=== PATIENT | male | born 1945 | race Caucasian/White ===

== ENCOUNTER 2017-04-03 19:37 | Inpatient (IN) | payer MEDICARE, OTHER ==
--- NOTE | ~2017-04-03 | US84 ---
[id number] [facility]. [facility] [address]. [place], [place] [address] [id number] E MR#: [id number] Acc #: [id number] NAME: DELFINO DILLON : 1945 SEX: M STUDY DATE/TIME: 04/03/2017 18:41 UNIT: MESHA ROOM: STUDY DESCRIPTION: US LE Veins Complete Johnnie Stdy Attending Physician: Halina Coleman M.D. Ordering Physician: Halina Coleman M.D. MEDICAL IMAGING REPORT This report is preliminary unless electronic signature is present EXAM Bilateral lower extremity venous duplex 04/03/2017 HISTORY Chronic bilateral lower extremity pain and swelling for 1 year, cellulitis. Evaluate for deep vein thrombosis. TECHNIQUE Venous ultrasound examination of both lower extremities was performed using grayscale, spectral Doppler and color flow Doppler imaging. FINDINGS The examination is negative. There is no evidence of deep venous thrombus from the groin to the lower calf bilaterally. Visualized greater saphenous veins are also patent. IMPRESSION Negative examination. No evidence of lower extremity deep venous thrombosis. Dictated by... Shiv Reyna M.D. THIS IS AN ELECTRONICALLY VERIFIED REPORT Shiv Reyna M.D. at 04/04/2017 2:20 PM KRT/alicia TD: 04/03/2017 20:45 JOB #: [id number] MEDICAL IMAGING REPORT Page 1 of 1 COPY
--- NOTE | ~2017-04-03 | CR252 ---
[facility] A Service of [facility] & [facility] RADIOLOGY TEXT RESULTS PATIENT: DELFINO DILLON LOCATION: [facility] : [birth year] UNIT #: [id number] AGE: [address]: Halina Coleman MD SEX: M ORDER DR: [id number] [facility] [address] [place], [place] [address] [id number] E MR#: [id number] Acc #: [id number] NAME: DELFINO DILLON : 1945 SEX: M STUDY DATE/TIME: 04/03/2017 19:37 UNIT: [facility] ROOM: STUDY DESCRIPTION: CR Tibia and Fibula 2 Views Lt Attending Physician: Halina Coleman M.D. Ordering Physician: Halina Coleman M.D. MEDICAL IMAGING REPORT This report is preliminary unless electronic signature is present EXAM Left tib-fib 04/03 INDICATIONS Redness and edema in the lower legs today. Cellulitis. FINDINGS AP and lateral views of the left lower leg were obtained. The patient is a knee arthroplasty hardware which appears well-aligned. The arterial calcifications are noted in the soft tissues. Chronic spurring is noted about the ankle. No fractures are seen. No soft tissue gas. IMPRESSION Knee replacement. No fractures are seen and there is no soft tissue gas. Chronic spurring noted about the ankle. Dictated by... Luis Alvarez Jr., M.D. THIS IS AN ELECTRONICALLY VERIFIED REPORT Luis Alvarez Jr., M.D. at 04/03/2017 11:05 PM URSZULA/alicia TD: 04/03/2017 20:47 JOB #: [id number] MEDICAL IMAGING REPORT Page 1 of 1 COPY
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
--- NOTE | ~2017-04-03 | CR253 ---
[facility] A Service of [facility] & [facility] RADIOLOGY TEXT RESULTS PATIENT: DELFINO DILLON LOCATION: [facility] : 43 UNIT #: [id number] AGE: [address]: Halina Coleman MD SEX: M ORDER DR: [id number] [facility] [address]. [place], [place] [address] [id number] E MR#: [id number] Acc #: [id number] NAME: DELFINO DILLON : 1945 SEX: M STUDY DATE/TIME: 04/03/2017 19:43 UNIT: [facility] ROOM: STUDY DESCRIPTION: CR Tibia and Fibula 2 Views Rt Attending Physician: Halina Coleman M.D. Ordering Physician: Halina Coleman M.D. MEDICAL IMAGING REPORT This report is preliminary unless electronic signature is present EXAM Right tib-fib 04/03 INDICATIONS Leg redness and edema for 1 day. Cellulitis. FINDINGS AP and lateral views of the tibia-fibula were obtained. Right knee arthroplasty appears well positioned. Atherosclerotic calcifications are noted in the soft tissues. There is no soft tissue gas. Chronic degenerative spurring or old post-traumatic change noted around the ankle. IMPRESSION Knee arthroplasty. Chronic changes about the ankle. No fracture or soft tissue gas. Dictated by... Luis Alvarez Jr., M.D. THIS IS AN ELECTRONICALLY VERIFIED REPORT Luis Alvarez Jr., M.D. at 04/03/2017 11:05 PM RLK/alicia TD: 04/03/2017 20:55 JOB #: [id number] MEDICAL IMAGING REPORT Page 1 of 1 COPY
--- NOTE | ~2017-04-03 | CR72 ---
[facility] A Service of [facility] & [facility] RADIOLOGY TEXT RESULTS PATIENT: DELFINO DILLON LOCATION: [facility] : 44 UNIT #: [id number] AGE: [address]: Halina Coleman MD SEX: M ORDER DR: [id number] [facility] [address] [place], [place] [address] [id number] E MR#: [id number] Acc #: [id number] NAME: DELFINO DILLON : 1945 SEX: M STUDY DATE/TIME: 04/03/2017 19:34 UNIT: [facility] ROOM: STUDY DESCRIPTION: CR Chest Single View Portable Attending Physician: Halina Coleman M.D. Ordering Physician: Halina Coleman M.D. MEDICAL IMAGING REPORT This report is preliminary unless electronic signature is present EXAM Portable chest 04/03 INDICATIONS Shortness of air and CHF. Symptoms started today. Lower extremity edema. FINDINGS AP portable views of the chest are compared with 11/22/2016. Heart is enlarged. There is infiltrate or atelectasis at the right base. Small volume of right pleural fluid. Left lung is clear. No pneumothorax. There is degenerative disease in both shoulders. IMPRESSION Stable cardiomegaly. Infiltrate or atelectasis in the right base with a small right pleural effusion. Dictated by... Luis Alvarez Jr., M.D. THIS IS AN ELECTRONICALLY VERIFIED REPORT Luis Alvarez Jr., M.D. at 04/03/2017 11:05 PM URSZULA/alicia TD: 04/03/2017 20:46 JOB #: [id number] MEDICAL IMAGING REPORT Page 1 of 1 COPY
--- NOTE | ~2017-04-03 | DS ---
Unit #: [id number] #: [id number] Patient: DELFINO DILLON [id number] [address] [address] [id number] I MR#: [id number] NAME: DELFINO DILLON ROOM: [facility] Age: 71 Sex: M Admission Date: 04/04/2017 : 1945 Discharge Date: 04/05/2017 Attending Physician: Bryant Cullen M.D. Primary Care Physician: Andreia Primary Care Physician DISCHARGE SUMMARY ADDENDUM Please note at the time of discharge, the patient's Zyvox will be discontinued and will be changed to Augmentin 875 mg p.o. b.i.d. x10 days as well as doxycycline 100 mg p.o. b.i.d. x10 days per the direction of Infectious Disease Service. Dictated by... Bryant Cullen M.D. ISN/su TD: 04/05/2017 09:45 JOB #: [id number] DISCHARGE SUMMARY Page 1 of 1 X Bryant Cullen MD X DISCHARGE SUMMARY
--- NOTE | ~2017-04-03 | BMI ---
[facility] Nutrition Therapy DATE: 04/04/17 Patient: DELFINO DILLON Physician: LETHA Address: [facility] Room/Bed: [address] [place] [address], [facility] [address], Zip: [place] [address] Admit Date: 04/04/17 Date of : 43 Height: 5 11 Weight: 412 187 HIGH BMI NOTE: DX: 71 Y.O. MALE ADMITTED FOR ARIEL EDEMA INCREASE OVER 2 WEEKS ANTHROPOMETRICS: 5'11", WT: 404# (184 KG), BMI: 56.3 DIET: HH INTERVENTION: 1. DIET RECOMMENDATIONS: 1. RECOMMEND TO ADD CC TO CURRENT DIET ORDER ABOVE TO PROMOTE GRADUAL WEIGHT LOSS TOWARDS HEALTHY BMI (19.0-25.0) OR +/-10%IBW RD WILL F/U PER PROTOCOL Respectfully, YUE JADE MS, RD, LD Food and Nutritional Services [facility] cc: client file
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
--- NOTE | ~2017-04-03 | EKG ---
PATIENT: DELFINO DILLON UNIT #: [id number] Ventricular Rate: 80 BPM Atrial Rate: 84 BPM QRS Duration: 88 ms Q-T Interval: 404 ms QTC Calculation(Bezet): 465 ms Calculated R [place]: 1 degrees Calculated T [place]: 7 degrees Diagnosis Line: Atrial fibrillation Diagnosis Line: ST and T wave abnormality, consider lateral ischemia Diagnosis Line: or digitalis effect Diagnosis Line: Prolonged QT Baseline wander Diagnosis Line: Abnormal ECG Diagnosis Line: When compared with ECG of 20-NOV-2016 17:31, Diagnosis Line: Inverted T waves have replaced nonspecific T wave Diagnosis Line: abnormality in Anterior leads Diagnosis Line: T wave inversion less evident in Lateral leads Diagnosis Line: Confirmed by MAT BRANDT MD ([id number]) on 04/07/2017 Diagnosis Line: 3:57:19 PM INTERPRETING MD: KARLY PRO
[~2017-04-03 19:37] MED LIST: ATENOLOL50 MG PO; ATORVASTATIN CA80 MG PO; BAYER CHEWABLE81 MG PO; BUDESONIDE0.5 MG/2 M INH; CATAPRES-TTS-10.1 M1 TD; COLACE CLEAR50 MG PO; COREG6.25 M1 PO; DULOXETINE HCL60 MG PO; ELIQUIS2.5 MG PO; FERREX 150 FOR1 EACH PO; FINASTERIDE5 M1 PO; HYDRALAZINE HCL25 MG PO; HYTRIN PO; IPRAT-ALBUT 0.5-3 ML INH; LEVOTHYROXINE75 MCG PO; MAPAP500 MG PO; MELADOX3 MG PO; METOLAZONE2.5 MG PO; MILK OF MAGNESIA PO; MULTI-VITAMIN1 EAC1 PO; NORVASC PO; PERFOROMIS20 MCG/2 M INH; POTASSIUM CHLO10 ME1 PO; PROTONIX PO; RISPERIDONE0.25 MG PO; SENNA8.6 M2 PO; TRAMADOL HCL50 M1 PO; [UNRECOGNIZED DRUG - OTHER] PO
[2017-04-03 20:27] LABS: BASOPHIL# 0.1 X10e3 (0-0.3); BASOPHIL% 0.9 % (0-2.5); EOSINOPHIL# 0.6 X10e3 (0-0.7); EOSINOPHIL% 8.7 % (0.0-7.0); HEMATOCRIT 36.9 % (38.0-50.0); HEMOGLOBIN 11.3 gm/dL (13.0-16.0); LYMPHOCYTE% 14.7 % (17.0-45.0); MEAN CELL VOLUME 75.2 FL (83-96); MEAN CORPUSCULAR HGB CONC 30.6 g/dL (30-36); MEAN PLATELET VOLUME 8.5 FL (6.5-11.5); MONOCYTE# 0.8 X10e3 (0-1.0); MONOCYTE% 10.8 % (3.0-12.0); NEUTROPHIL# 4.6 X10e3 (1.5-7.1); NEUTROPHIL% 64.9 % (40-75); PLATELET COUNT 97 X10e3 (140-420); RED BLOOD COUNT 4.91 X10e (3.90-5.60); RED CELL DISTRIBUTION WIDTH 20.1 % (11.0-15.5); WHITE BLOOD COUNT 7.1 X10e3 (4.0-10.5)
[2017-04-03 20:39] LABS: DIFF IND YES
[2017-04-03 20:42] LABS: PLATELET ESTIMATE DECREASED (NORMAL)
[2017-04-03 20:43] LABS: ALBUMIN SERUM 3.4 g/dL (3.5-5.0); BILIRUBIN, DIRECT 0.1 mg/dL (0.0-0.2); BILIRUBIN,INDIRECT 0.4 mg/dL (0.0-0.9); BILIRUBIN,TOTAL 0.5 mg/dL (0.2-2.0); CALCIUM SERUM 8.3 mg/dL (8.4-10.2); GLOM FILT RATE Estimated 32.4 mL/min (>60); POTASSIUM 4.9 mmol/L (3.5-5.1); PROTEIN TOTAL SERUM 6.8 g/dL (6.0-8.3); RBC NORMAL YES
[2017-04-04] MEDS ORDERED: HYDRALAZINE HCL25 MG PO ×2 (02:03→02:29)
[2017-04-04] MEDS ORDERED: COUMADIN5 MG PO (02:05)
[2017-04-04] MEDS ORDERED: ALBUTEROL1.25 MG/3 INH (02:07)
[2017-04-04] MEDS ORDERED: ALBUTEROL MININEB NEB (02:09)
[2017-04-04] MEDS ORDERED: SYMBICORT INH ×2 (02:13→02:31)
[2017-04-04] MEDS ORDERED: LEVOTHYROXINE112 MCG PO (02:14)
[2017-04-04] MEDS ORDERED: DULOXETINE HCL60 MG PO (02:15)
[2017-04-04] MEDS ORDERED: LOW DOSE ASPIRI81 M1 PO (02:16)
[2017-04-04] MEDS ORDERED: COMBIVENT U/D3 M4 INH (02:28)
[2017-04-04] MEDS ORDERED: CLARITIN10 M2 PO (02:29)
[2017-04-04] MEDS ORDERED: CEFDINIR300 M1 PO (02:30)
[2017-04-04] MEDS ORDERED: LOPRESSOR PO (02:30)
[2017-04-04] MEDS ORDERED: POTASSIUM CHLO10 ME1 PO (02:30)
[2017-04-04] MEDS ORDERED: COUMADIN3 MG PO (02:31)
[2017-04-04] MEDS ORDERED: BUMEX2 MG PO (02:31)
[2017-04-04 06:20] LABS: BASOPHIL% 0.5 % (0-2.5); DIFF IND NO; EOSINOPHIL# 0.6 X10e3 (0-0.7); EOSINOPHIL% 9.3 % (0.0-7.0); HEMATOCRIT 38.9 % (38.0-50.0); HEMOGLOBIN 11.5 gm/dL (13.0-16.0); LYMPHOCYTE# 1.2 X10e3 (1.0-3.5); LYMPHOCYTE% 17.4 % (17.0-45.0); MEAN CELL VOLUME 76.3 FL (83-96); MEAN CORPUSCULAR HEMOGLOBIN 22.5 PG (28-34); MEAN CORPUSCULAR HGB CONC 29.5 g/dL (30-36); MEAN PLATELET VOLUME 8.7 FL (6.5-11.5); MONOCYTE# 0.9 X10e3 (0-1.0); MONOCYTE% 13.3 % (3.0-12.0); NEUTROPHIL% 59.5 % (40-75); PLATELET COUNT 102 X10e3 (140-420); WHITE BLOOD COUNT 6.7 X10e3 (4.0-10.5)
[2017-04-04 06:37] LABS: INR 1.9; PROTHROMBIN TIME (PATIENT) 21.1 SECONDS (9.6-11.5)
[2017-04-04 07:01] LABS: BUN/CREATININE RATIO 21.76; CALCIUM SERUM 8.3 mg/dL (8.4-10.2); CREATININE SERUM 1.7 mg/dL (0.6-1.4); GLOM FILT RATE Estimated 39.4 mL/min (>60); POTASSIUM 4.3 mmol/L (3.5-5.1)
[2017-04-05 05:40] LABS: INR 1.7; PROTHROMBIN TIME (PATIENT) 18.5 SECONDS (9.6-11.5)
[2017-04-05 05:47] LABS: MEAN CELL VOLUME 75.1 FL (83-96); MEAN CORPUSCULAR HEMOGLOBIN 22.7 PG (28-34); MEAN CORPUSCULAR HGB CONC 30.3 g/dL (30-36); MEAN PLATELET VOLUME 7.6 FL (6.5-11.5); RED BLOOD COUNT 4.93 X10e (3.90-5.60); RED CELL DISTRIBUTION WIDTH 20.2 % (11.0-15.5); WHITE BLOOD COUNT 5.5 X10e3 (4.0-10.5)
[2017-04-05 05:52] LABS: HEMOGLOBIN 11.2 gm/dL (13.0-16.0)
[2017-04-05 06:57] LABS: BUN/CREATININE RATIO 23.12; CALCIUM SERUM 8.3 mg/dL (8.4-10.2); CREATININE SERUM 1.6 mg/dL (0.6-1.4); GLOM FILT RATE Estimated 42.4 mL/min (>60); POTASSIUM 3.8 mmol/L (3.5-5.1)
== END 2017-04-05 12:20 | DRG 603 ==
LOC: CED 19:37 → CEDOF 04-04 01:00 → C5B 04-04 03:10
PROVIDERS: Family Medicine; Internal Medicine; Student in an Organized Health Care Education/Training Program
DX: L03.116 Cellulitis of left lower limb (principal); I48.2 Chronic atrial fibrillation; I13.0 Hypertensive heart and chronic kidney disease with heart failure and stage 1 through stage 4 chronic kidney disease, or unspecified chronic kidney disease; I50.20 Unspecified systolic (congestive) heart failure; Z68.43 Body mass index [BMI] 50.0-59.9, adult; B95.61 Methicillin susceptible Staphylococcus aureus infection as the cause of diseases classified elsewhere; B96.89 Other specified bacterial agents as the cause of diseases classified elsewhere; I87.8 Other specified disorders of veins; R60.0 Localized edema; Z79.01 Long term (current) use of anticoagulants; E66.01 Morbid (severe) obesity due to excess calories; N18.9 Chronic kidney disease, unspecified; N40.0 Benign prostatic hyperplasia without lower urinary tract symptoms; J44.9 Chronic obstructive pulmonary disease, unspecified; F32.9 Major depressive disorder, single episode, unspecified; G47.33 Obstructive sleep apnea (adult) (pediatric); J98.8 Other specified respiratory disorders; E03.9 Hypothyroidism, unspecified; Z79.82 Long term (current) use of aspirin; I25.10 Atherosclerotic heart disease of native coronary artery without angina pectoris; Z66 Do not resuscitate
CPT/HCPCS: 36415; 71010; 73590; 80048; 80076; 83605; 83880; 85025; 85027; 85610; 85652; 86140; 87040; 87070; 87077; 87186; 87205; 93005; 93970; 94640; 94760; 99285; J2020; J3370